=== PATIENT | male | born 1990 | race Caucasian/White ===

== ENCOUNTER 2019-09-01 10:56 | Emergency (ER) | payer SELFPAY ==
[~2019-09-01] VITALS: Ht 190.5 cm; Wt 88.5 kg
--- NOTE | 2019-09-01 11:24 | NUR ---
Dr Franks at the bedside for MSE.
[2019-09-01] MEDS ORDERED: IV NORMAL SALINE 1000 ML BAG IV ONE (11:30)
[2019-09-01 11:44] LABS: BASOPHILS % (AUTO) 0.7 % (0.0-2.0); EOSINOPHILS # (AUTO) 0.3 K/uL (0.0-0.7); EOSINOPHILS % (AUTO) 6.4 % (0.0-7.0); HEMATOCRIT 44.4 % (36.7-47.1); HEMOGLOBIN 14.8 g/dL (12.5-16.3); LYMPHOCYTES # (AUTO) 1.8 K/uL (20.0-40.0); LYMPHOCYTES % (AUTO) 36.8 % (20.5-51.5); MEAN CORPUSCULAR HEMOGLOBIN 29.7 uug (23.8-33.4); MEAN CORPUSCULAR HGB CONC 33 g/dL (32.5-36.3); MEAN CORPUSCULAR VOLUME 88.8 fL (73.0-96.2); MONOCYTES # (AUTO) 0.4 K/uL (2.0-10.0); MONOCYTES % (AUTO) 8.6 % (0.0-11.0); NEUTROPHILS # (AUTO) 2.3 K/uL (1.8-8.9); NEUTROPHILS % (AUTO) 47.5 % (38.5-71.5); PLATELET COUNT (AUTO) 182 K/uL (152-348); WHITE BLOOD COUNT (AUTO) 4.9 K/uL (3.6-10.2)
[2019-09-01 11:52] LABS: POTASSIUM 4.9 mmol/L (3.5-5.1)
[2019-09-01 11:58] LABS: BILIRUBIN,DIRECT 0.1 mg/dL (0.0-0.2); BILIRUBIN,TOTAL 0.5 mg/dL (0.2-1.0); TOTAL PROTEIN, SERUM 8.1 g/dL (6.4-8.2)
--- NOTE | 2019-09-01 13:05 | NUR ---
IV removed. Catheter intact and site benign. Pressure and 4x4 gauze applied to site. No bleeding noted.
[2019-09-01 13:06] VITALS: BP 128/70
--- NOTE | 2019-09-01 13:07 | NUR ---
Patient discharged to home in stable conditon. Written and verbal after care instructions given. Patient verbalizes understanding of instructions.
== END 2019-09-01 13:07 | disposition home or self-care (01) ==
LOC: ER 10:56
DX: R55 Syncope and collapse (principal)
CPT/HCPCS: 36415; 70030-TC; 71045; 85025; 93005; A4663; J7030